=== PATIENT | female | born 1965 | race Two or more races ===

== ENCOUNTER → 2016-09-22 | Outpatient (CLI) | payer MEDICARE, OTHER ==
[~2016-09-22] MED LIST: PRILOSEC PO; SKELAXIN PO
--- NOTE | ~2016-09-22 | MY11 ---
[facility] A Service of [facility] RADIOLOGY TEXT RESULTS PATIENT: ARMAND MULLIGAN LOCATION: [facility] : 65 UNIT #: [id number] AGE: [address]: Alex Romeo MD SEX: F ORDER DR: [id number] [address] [address] [id number] MR#: [id number] #: [id number] NAME: ARMAND MULLIGAN : 1965 SEX: F STUDY DATE/TIME: 09/22/2016 16:21 UNIT: [facility] ROOM: STUDY DESCRIPTION: MY Mammogram Screening Dig Mario Attending Physician: Alex Romeo M.D. Referring Physician: Alex Romeo M.D. Ordering Physician: Alex Romeo M.D. Primary Care Physician: Alex Romeo M.D. MEDICAL IMAGING REPORT This report is preliminary unless electronic signature is present EXAM Bilateral digital screening mammogram with CAD, 09/22/2016 INDICATIONS 51-year-old female for routine screening. No reported problems, no personal or family history of breast cancer. No surgeries. TECHNIQUE CC and MLO views of the breasts were obtained and reviewed with an FDA-approved CAD device. COMPARISON 03/16/2015, 09/27/2013, 12/13/2011 FINDINGS Breast parenchyma is composed of scattered fibroglandular densities; the pattern is unchanged. There is no new dominant nodule or mass in either breast, no new suspicious cluster of microcalcifications. Benign-appearing nodularity in the right breast is stable and there are benign calcifications in the left breast. IMPRESSION 1. Benign screening mammogram, 1 year followup recommended. Patients over the age of 40 are entered into a reminder system with target due date for the next mammogram. A result letter will also be sent to the patient. BIRADS: 2 Benign Finding Dictated by... [facility] A Service of [facility] RADIOLOGY TEXT RESULTS PATIENT: ARMAND MULLIGAN LOCATION: [facility] : 65 UNIT #: [id number] AGE: [address]: Alex Romeo MD SEX: F ORDER DR: Ron Lundberg M.D. THIS IS AN ELECTRONICALLY VERIFIED REPORT Ron Lundberg M.D. at 09/23/2016 7:31 AM KATERINE/jade TD: 09/22/2016 21:28 JOB #: [id number] MEDICAL IMAGING REPORT Page 1 of 1 COPY
== END | disposition home or self-care (01) ==
LOC: CWCC 16:01
DX: Z12.31 Encounter for screening mammogram for malignant neoplasm of breast (principal)
CPT/HCPCS: G0202